=== PATIENT | male | born 1990 | race Caucasian/White ===

== ENCOUNTER 2022-11-09 13:35 | Emergency (ER) | payer BC, SELFPAY ==
[2022-11-09 13:50] VITALS: BP 130/74; PULSE 102; RESP 20; TEMP 36.7; O2SAT 98
--- NOTE | 2022-11-09 13:56 | ED.URI ---
HPI - URI/Sore Throat General Chief Complaint: Upper Respiratory Infection Stated Complaint: Sore Throat Time Seen by Provider: 11/09/22 13:56 History of Present Illness HPI Narrative: 32-year-old male presented for complaint of fever and sore throat, onset this morning. Headache last night. He endorses temperature up to 102. Has been alternating Tylenol and ibuprofen. Denies known sick contacts, but states his son has had a fever but tested negative at the doctor. Denies shortness of breath, wheezing, nausea, vomiting, diarrhea. Negative home covid test this morning. Related Data Allergies Allergy/AdvReac Type Severity Reaction Status Date / Time Penicillins AdvReac Mild hives Verified 11/09/22 13:59 Review of Systems Review of Systems: ROS per HPI [facility] Past Medical History Medical History (Updated 11/09/22 @ 14:06 by Laina Loyd, [employer]) No pertinent past medical history Exam Narrative: GENERAL: mildly Ill-appearing, no acute distress. EYES: conjunctivae clear ENT: Mucous membranes moist. TMs pearly granados with normal light reflex bilaterally; no tragal tenderness. Oropharynx severely erythematous, Tonsils enlarged 3+ with exudate. No drooling, no hoarseness, no trismus, uvula midline. No tripod positioning, hot potato voice, or soft palate swelling. NECK: Supple. No lymphadenopathy CHEST: Clear to auscultation, breath sounds equal. No respiratory distress, speaks in full sentences. HEART: Regular rate and rhythm. No murmur heard. SKIN: Warm, dry, no rash. NEURO: Alert and oriented x3. Course Course Emergency Course: Patient is aware of diagnosis, understands and agrees to treatment plan. Anticipatory guidance given. Patient agrees to follow-up as directed and is aware of reasons to seek care at the emergency department. Portions of this record may have been created with voice recognition software Level of Care: Express Care Visit Vital Signs Vital signs: Vital Signs Temperature 98.0 F 11/09/22 13:50 Pulse Rate 102 H 11/09/22 13:50 Respiratory Rate 20 11/09/22 13:50 Blood Pressure 130/74 11/09/22 13:50 Pulse Oximetry 98 11/09/22 13:50 Oxygen Delivery Room Air 11/09/22 13:50 Temperature 98.0 F 11/09/22 13:50 Pulse Rate 102 H 11/09/22 13:50 Respiratory Rate 20 11/09/22 13:50 Blood Pressure 130/74 11/09/22 13:50 Pulse Oximetry 98 11/09/22 13:50 Oxygen Delivery Room Air 11/09/22 13:50 MDM - URI/Sore Throat MDM Narrative Medical decision making narrative: strep result reviewed with pt. Advise supportive treatments. Patient is appropriate for outpatient treatment and follow-up. Differential Diagnosis Differential diagnosis: Likely upper respiratory infection, viral infection and pharyngitis Discharge Plan Discharge Clinical Impression: Strep pharyngitis Patient Disposition: Home, Self-Care Condition: Stable Instructions: Antibiotic Form, Strep Throat (ED) Additional Instructions: - Take the antibiotic as directed. Fever and sore throat typically resolve within one to three days. Most patients can return to work after 12 to 24 hours of antibiotic therapy, provided you are fever free and otherwise well. -Eat and drink things that are easy to swallow, like soft foods, cool liquids, tea with honey, or popsicles . -Salt water gargles and/or may use topical anesthetic ( Chloraseptic spray) or lozenges to relieve dryness or throat pain -Alternate Tylenol and ibuprofen as needed for pain and fever as directed. -Frequent hand washing or hand veneer stapler is one of the best ways to prevent spread of infection. Throw away the toothbrush after 24hours of antibiotic. -Follow up with primary care provider in 2-3 days if condition is not improving -Go to the ER if you have trouble breathing, cannot drink enough fluids, have muffled voice or drooling, difficulty opening your mouth, or severe swelling. Prescriptions: New azithromycin [Demar
== END 2022-11-09 14:05 | disposition home or self-care (01) ==
PROVIDERS: Emergency Provider Nurse Practitioner Family
DX: J02.0 Streptococcal pharyngitis (principal)
CPT/HCPCS: 87880; 99213; G0463

== ENCOUNTER 2022-12-05 12:05 | Emergency (ER) | payer BC, SELFPAY ==
[2022-12-05 12:20] VITALS: BP 128/66; PULSE 90; RESP 18; TEMP 36.7; O2SAT 98
--- NOTE | 2022-12-05 12:37 | ED.URI ---
HPI - URI/Sore Throat General Chief Complaint: Upper Respiratory Infection Stated Complaint: sorethroat Time Seen by Provider: 12/05/22 12:37 History of Present Illness HPI Narrative: 32-year-old male presented for c/o sore throat, body aches, and fever up to 100. Onset yesterday. Endorses strep throat 11/09/22, states these symptoms feel similar. Endorses painful swallow. Able to maintain secretions. Denies sob, wheezing, n/v/d. Related Data Home Medications Medication Instructions Recorded Confirmed dupilumab 300 mg/2 mL subcutaneous 300 mg subcut USEASDIRECTD 12/05/22 12/05/22 pen injector (Dupixent) Allergies Allergy/AdvReac Type Severity Reaction Status Date / Time Penicillins AdvReac Mild hives Verified 12/05/22 12:26 Review of Systems Review of Systems: CONSTITUTIONAL: reports body aches, fever, chills, sweats. EYES: Denies visual changes, redness, or discharge. ENT: Reports sore throat. Denies rhinorrhea, congestion, or otalgia. CARDIOVASCULAR: Denies chest pain, palpitations, or edema. RESPIRATORY: Denies dyspnea. GASTROINTESTINAL: Denies abdominal pain, nausea, vomiting, or diarrhea. SKIN: Denies rash, itching, or wounds. MUSCULOSKELETAL: Denies back pain, joint pain NEUROLOGIC: Denies headache PMFSH Past Medical History Medical History No pertinent past medical history Exam Narrative: GENERAL: mildly Ill-appearing, no acute distress. EYES: conjunctivae clear ENT: Mucous membranes moist. TM pearly granados with normal light reflex bilaterally; no tragal tenderness. Oropharynx erythematous, Tonsils enlarged 3+ without exudate. No drooling, no hoarseness, no trismus, uvula midline. No tripod positioning, hot potato voice, or soft palate swelling. NECK: Supple. No lymphadenopathy CHEST: Clear to auscultation, breath sounds equal. No respiratory distress, speaks in full sentences. HEART: Regular rate and rhythm. No murmur heard. SKIN: Warm, dry, no rash. NEURO: Alert and oriented x3. Course Course Emergency Course: Patient is aware of diagnosis, understands and agrees to treatment plan. Anticipatory guidance given. Patient agrees to follow-up as directed and is aware of reasons to seek care at the emergency department. Portions of this record may have been created with voice recognition software Level of Care: Express Care Visit Vital Signs Vital signs: Vital Signs Temperature 98.0 F 12/05/22 12:20 Pulse Rate 90 12/05/22 12:20 Respiratory Rate 18 12/05/22 12:20 Blood Pressure 128/66 12/05/22 12:20 Pulse Oximetry 98 12/05/22 12:20 Oxygen Delivery Room Air 12/05/22 12:20 Temperature 98.0 F 12/05/22 12:20 Pulse Rate 90 12/05/22 12:20 Respiratory Rate 18 12/05/22 12:20 Blood Pressure 128/66 12/05/22 12:20 Pulse Oximetry 98 12/05/22 12:20 Oxygen Delivery Room Air 12/05/22 12:20 MDM - URI/Sore Throat MDM Narrative Medical decision making narrative: strep result reviewed with pt. Advise supportive treatments. PCN allergy. Plans to f/u with ENT, states he gets strep infections often. Patient is appropriate for outpatient treatment and follow-up. Differential Diagnosis Differential diagnosis: Likely upper respiratory infection, viral infection and pharyngitis Lab Data Labs: Strep Screen Positive Group A Strep *(Reference Range: Negative)* Discharge Plan Discharge Clinical Impression: Strep pharyngitis Patient Disposition: Home, Self-Care Condition: Stable Instructions: Antibiotic Form, Strep Throat (ED) Additional Instructions: - Take the antibiotic as directed. Fever and sore throat typically resolve within one to three days. Most patients can return to work after 12 to 24 hours of antibiotic therapy, provided you are fever free and otherwise well. -Eat and drink things that are easy to swallow, like soft foods
== END 2022-12-05 12:48 | disposition home or self-care (01) ==
PROVIDERS: Emergency Provider Nurse Practitioner Family
DX: J02.0 Streptococcal pharyngitis (principal)
CPT/HCPCS: 87880; 99213; G0463